=== PATIENT | female | born 1950 | race Caucasian/White ===

== ENCOUNTER 2016-11-14 09:58 | Outpatient (CLI) | payer BC, OTHER ==
--- NOTE | 2016-11-15 22:40 | Mammography Report ---
DIGITAL BILATERAL SCREENING MAMMOGRAM: 11/14/2016 CLINICAL HISTORY: This is a 66-year-old female in for routine screening mammogram. Patient had a cou sin age 66 with breast cancer. Patient has had no prior breast surgeries. COMPARISON: 05/07/2009, 06/21/2011, 06/21/2012, 06/21/2013, 10/20/2014. TECHNIQUE: Craniocaudad and oblique lateral views of each breast were obtained with Hologic full fie ld digital mammography. FINDINGS: Breast parenchyma consists of scattered fibroglandular densities. A 1 cm relatively well-circumscribed mass is noted in the posterior aspect of the left breast along t he midline. This mass appears slightly denser and slightly larger than on preceding mammogram dated 11/05/2015. The mass is 7.7 cm posterior to the nipple. Recommend patient return for left breast ul trasound for further evaluation. No significant clusters of calcification are seen. IMPRESSION: A 1 CM WELL-CIRCUMSCRIBED MASS IS NOTED IN THE POSTERIOR ASPECT OF THE LEFT BREAST ALONG THE MIDLINE. THIS MASS APPEARS SLIGHTLY LARGER AND DENSER THAN ON PRECEDING EXAMS. RECOMMEND PATIE NT RETURN FOR LEFT BREAST ULTRASOUND. BIRADS CATEGORY: 0, INCOMPLETE. NEEDS ADDITIONAL IMAGING EVALUATION. STANDARD QUALIFYING STATEMENTS 1. This examination was reviewed with the aid of Computed-Aided Detection (CAD). 2. A negative or benign imaging report should not delay biopsy if clinically suspicious findings are present. Consider surgical consultation if warranted. More than 5% of cancers are not identified b y imaging. 3. Dense breasts may obscure an underlying neoplasm. JOB #: [id number] EXT JOB #:[id number]
== END 2016-11-14 09:59 | disposition home or self-care (01) ==
LOC: DI 09:58
PROVIDERS: ATTEND Family Medicine
DX: Z12.31 Encounter for screening mammogram for malignant neoplasm of breast (principal); N63 Unspecified lump in breast
CPT/HCPCS: 77067

== ENCOUNTER 2016-11-15 21:07 | Outpatient (CLI) | payer OTHER | END 2016-11-15 21:08 | disposition critical access hospital (66) | LOC: EMS 21:07 | PROVIDERS: ATTEND Surgery | DX: R09.89 Other specified symptoms and signs involving the circulatory and respiratory systems (principal) | CPT/HCPCS: A0425; A0427 ==

== ENCOUNTER 2016-11-15 21:26 | Emergency (ER) | payer OTHER ==
[2016-11-15] MEDS ORDERED: ASPIRIN CHEW 81 MG TABLET PO STA (21:45)
[2016-11-15] MEDS ORDERED: ASPIRIN CHEW 81 MG TABLET ONE (21:47)
[2016-11-15 22:11] LABS: BASOPHILS # (AUTO) 0.1 10^3/uL (0.0-0.1); BASOPHILS % (AUTO) 2.2 %; EOSINOPHILS # (AUTO) 0.2 10^3/uL (0.0-0.7); EOSINOPHILS % (AUTO) 3.5 %; HCT - HEMATOCRIT 42.6 % (37.0-47.0); HGB - HEMOGLOBIN 13.7 g/dL (12.0-16.0); LYMPHOCYTES % (AUTO) 37.4 %; MEAN CORPUSCULAR HEMOGLOBIN 27.7 pg (27.0-31.0); MEAN CORPUSCULAR HGB CONC 32.1 g/dL (32.0-36.0); MEAN CORPUSCULAR VOLUME 86.4 fL (81.0-99.0); MEAN PLATELET VOLUME 9.2 fL (7.9-10.8); MONOCYTES # (AUTO) 0.3 10^3/uL (0.0-1.0); MONOCYTES % (AUTO) 5.3 %; NEUTROPHILS # (AUTO) 2.7 10^3/uL (1.5-6.6); NEUTROPHILS % (AUTO) 51.6 %; NUCLEATED RED BLOOD CELLS AUTO 0.2 /100WBC; RED BLOOD COUNT 4.93 10^6/uL (4.20-5.40); UNCORRECTED WHITE BLOOD COUNT 5.2 x10^3/uL; WHITE BLOOD COUNT 5.2 x10^3/uL (4.8-10.8)
[2016-11-15 22:21] LABS: INR 1.2 (0.8-1.2); PT - PROTHROMBIN TIME 13.6 secs (9.9-12.6)
[2016-11-15 22:22] LABS: BILIRUBIN,URINE NEGATIVE (NEGATIVE); PH,URINE 7.5 PH (5.0-7.5)
[2016-11-15 22:23] LABS: UA w/ MICROSCOPIC CHARGE YES
[2016-11-15 22:24] LABS: ALBUMIN/GLOBULIN RATIO 1.9 (1.0-2.2); BILIRUBIN,TOTAL 0.5 mg/dL (0.2-1.0); CALCIUM 9.6 mg/dL (8.5-10.3); CREATININE 0.7 mg/dL (0.4-1.0); POTASSIUM 3.5 mmol/L (3.5-5.0)
--- NOTE | 2016-11-15 22:28 | XRAY Preliminary Report ---
Exam: XR Chest 1 View IMPRESSION: Normal single view chest. [facility] SITE ID: [id number]
[2016-11-15 22:29] LABS: PARTIAL THROMBOPLASTIN TIME 39.4 secs (24.9-33.3)
--- NOTE | 2016-11-15 22:31 | XRAY Report ---
EXAM: CHEST RADIOGRAPHY EXAM DATE: 11/15/2016 10:00 PM. CLINICAL HISTORY: Chest pain, dizziness. COMPARISON: None. TECHNIQUE: 1 view. FINDINGS: Lungs/Pleura: No focal opacities evident. No pleural effusion. No pneumothorax. Mediastinum: Within exam limitations, cardiomediastinal contour is normal. Other: None. IMPRESSION: Normal single view chest. [facility] Referring Provider Line: [phone] SITE ID: [id number]
[2016-11-15 22:38] LABS: UR CULTURE IF IND NOT INDICATED; WBC,URINE 0-3 /HPF (0-5)
[2016-11-15 23:34] VITALS: BP 122/58
--- NOTE | 2016-11-16 | ED Physician Documentation ---
History of Present Illness - Stated complaint Stated Complaint: PALPATATIONS - Chief complaint Chief Complaint: Cardiac - History obtained from History obtained from: Patient, Family - History of Present Illness Timing: Today - Additonal information Additional information: Patient is a 66 year old female with a history of paroxysmal a fib who is presenting to the emergency department for htn and palpations. Patient states that today she felt like her heart was palpating, so she took her blood pressure. The systol was 150 so patient became worried and called ems. Upon initial evaluation in the emergency department patient denied any chest pain or shortness of breath but stated that she did feel a bit nauseated. Review of Systems Constitutional: reports: Chills. denies: Fever Eyes: denies: Loss of vision, Decreased vision Ears: denies: Loss of hearing, Ear pain Nose: denies: Rhinorrhea / runny nose, Congestion Throat: denies: Dental pain / toothache, Sore throat Cardiac: reports: Palpitations. denies: Chest pain / pressure, Pedal edema, Calf pain Respiratory: denies: Dyspnea, Cough, Wheezing GI: reports: Nausea. 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 - Allergies Allergies/Adverse Reactions: Allergies Allergy/AdvReac Type Severity Reaction Status Date / Time patient states "a few rare Allergy Unknown Uncoded 11/15/16 21:49 ones" - Social History Does the pt smoke?: No Smoking Status: Never smoker Does the pt drink ETOH?: No Does the pt have substance abuse?: No - Immunizations Immunizations are current?: Yes - POLST Patient has POLST: Yes PD ED PE NORMAL - Vitals Vital signs reviewed: Yes - General General: Alert and oriented X 3, Well developed/nourished - HEENT HEENT: Atraumatic, PERRL, Pharynx benign - Neck Neck: Supple, no meningeal sign, No JVD - Cardiac Cardiac: RRR, No murmur - Respiratory Respiratory: No respiratory distress, Clear bilaterally - Abdomen Abdomen: Soft, Non tender, Non distended - Derm Derm: Normal color, Warm and dry, No rash - Extremities Extremities: No deformity, No tenderness to palpate, No calf tenderness / cord - Neuro Neuro: No motor deficit, No sensory deficit, Normal speech PD ED PE EXPANDED - General General: Alert, Anxious Results - Vitals Vitals: Vital Signs - 24 hr 11/15/16 11/15/16 11/15/16 21:28 22:01 23:33 Heart Rate 69 70 59 L Respiratory 17 20 18 Rate Blood Pressure 156/77 H 144/73 H 122/58 L O2 Saturation 97 95 94 Oxygen O2 Source Room air - EKG (time done) 2136 Rate: Rate (enter#) (67) Rhythm: NSR [place]: LAD Intervals: Normal HI Ischemia: ST depression (V4, V5), T wave inversion (AVL, V4-V6) Compare to prior EKG: Changed from prior EKG - Labs Labs: Laboratory Tests 11/15/16 11/15/16 11/15/16 22:04 22:04 22:04 WBC 5.2 RBC 4.93 Hgb 13.7 Hct 42.6 MCV 86.4 MCH 27.7 MCHC 32.1 RDW 16.0 H Plt Count 282 MPV 9.2 Neut # 2.7 Lymph # 2.0 [place] # 0.3 Eos # 0.2 Baso # 0.1 Absolute Nucleated RBC 0.01 Nucleated RBCs 0.2 PT 13.6 H INR 1.2 APTT 39.4 H Sodium 142 Potassium 3.5 Chloride 108 Carbon Dioxide 26 Anion Gap 8.0 BUN 16 Creatinine 0.7 Estimated GFR (MDRD) 84 L Glucose 116 H Calcium 9.6 Total Bilirubin 0.5 AST 21 ALT 21 Alkaline Phosphatase 22 L Troponin I B-Natriuretic Peptide Total Protein 7.0 Albumin 4.6 Globulin 2.4 Albumin/Globulin Ratio 1.9 Lipase 44 TSH Urine Color Urine Clarity Urine pH Ur Specific [place] Urine Protein Urine Glucose (UA) Urine Ketones Urine Occult Blood Urine Nitrite Urine Bilirubin Urine Urobilinogen Ur Leukocyte Esterase Urine RBC Urine WBC Ur Squamous Epith Cells Urine Bacteria Ur Microscopic Review Urine Culture Comments 11/15/16 11/15/16 11/15/16 22:04 22:04 22:04 WBC RBC Hgb Hct MCV MCH MCHC RDW Plt Count MPV Neut # Lymph # [place] # Eos # Baso # Absolute Nucleated RBC Nucleated RBCs PT INR APTT Sodium Potassium Chloride Carbon Dioxide Anion Gap BUN Creatinine Estimated GFR (MDRD) Glucose Calcium Total Bilirubin AST ALT Alkaline Phosphatase Troponin I < 0.04 B-Natriuretic Peptide 159 H Total Protein Albumin Globulin Albumin/Globulin Ratio Lipase TSH 3.79 Urine Color Urine Clarity Urine pH Ur Specific [place] Urine Protein Urine Glucose (UA) Urine Ketones Urine Occult Blood Urine Nitrite Urine Bilirubin Urine Urobilinogen Ur Leukocyte Esterase Urine RBC Urine WBC Ur Squamous Epith Cells Urine Bacteria Ur Microscopic Review Urine Culture Comments 11/15/16 11/15/16 22:15 23:20 WBC RBC Hgb Hct MCV MCH MCHC RDW Plt Count MPV Neut # Lymph # [place] # Eos # Baso # Absolute Nucleated RBC Nucleated RBCs PT INR APTT Sodium Potassium Chloride Carbon Dioxide Anion Gap BUN Creatinine Estimated GFR (MDRD) Glucose Calcium Total Bilirubin AST ALT Alkaline Phosphatase Troponin I < 0.04 B-Natriuretic Peptide Total Protein Albumin Globulin Albumin/Globulin Ratio Lipase TSH Urine Color YELLOW Urine Clarity CLEAR Urine pH 7.5 Ur Specific [place] 1.010 Urine Protein NEGATIVE Urine Glucose (UA) NEGATIVE Urine Ketones NEGATIVE Urine Occult Blood SMALL H Urine Nitrite NEGATIVE Urine Bilirubin NEGATIVE Urine Urobilinogen 0.2 (NORMAL) Ur Leukocyte Esterase NEGATIVE Urine RBC 0-5 Urine WBC 0-3 Ur Squamous Epith Cells FEW Squamous Urine Bacteria None Seen Ur Microscopic Review INDICATED Urine Culture Comments NOT INDICATED - Rads (name of study) chest x-ray Radiology: Final report received (no acute abnormality) PD MEDICAL DECISION MAKING - ED course Complexity details: reviewed old records, reviewed results, re-evaluated patient , considered differential, d/w patient, d/w family ED course: Patient was seen and examined at bedside. ekg was performed and showed t wave inversions and st segment depressions. there was no previous ekg available so patient was treated with aspirin. [facility] and [facility] in [place] was contacted and a previous ekg was faxed over. the previous ekg showed the same abnormalities. Patient's preliminary diagnostics, including troponin were negative. patient was observed in the emergency department for over two hours. Patient's second set of troponins were negative. Patient remained chest pain free while in the emergency department. Copies of the ekgs were made for the family to take with them while traveling. patient required no further work up at this time and patient was stable for discharge with outpatient follow up. Departure - Departure Disposition: 01 Home, Self Care Clinical Impression: Intermittent palpitations Condition: Good Instructions: ED Palpitations Follow-Up: Yobany Nash MD [Primary Care Provider] - Tomorrow Comments: Your diagnostics today were within normal limits. your ekg was unchanged when compared to previous. Your blood work was within normal limits. You should follow up with your pmd, if your have recurrent spells of the feeling of palpitations. You may need to wear a holter monitor. You have an abnormal ekg , so when you are traveling you should keep it with you so that you can show the doctor if you have to see one. You may return to the emergency department at any time for new, worsening or uncontrollable symptoms.
== END 2016-11-16 00:16 | disposition home or self-care (01) ==
LOC: EDUNIT# → ED 21:26
DX: R00.2 Palpitations (principal); I48.0 Paroxysmal atrial fibrillation; I10 Essential (primary) hypertension; E11.9 Type 2 diabetes mellitus without complications
CPT/HCPCS: 36415; 71010; 80053; 81001; 83690; 83880; 84443; 84484; 85025; 85610; 85730; 93005; 93010; 99284; 99285; A9270; 81003; 87086

== ENCOUNTER 2016-12-05 09:26 | Outpatient (CLI) | payer OTHER ==
--- NOTE | 2016-12-05 11:28 | Ultrasound Report ---
LEFT BREAST ULTRASOUND: 12/05/2016 CLINICAL INDICATION: Possible nodule on mammogram. TECHNIQUE: Real-time scanning was performed with account services representative static images obtained. FINDINGS: Ultrasound of the inferior left breast was performed. No discrete solid or cystic lesion is identified. Unremarkable parenchymal lobules are seen. No sonog raphically suspicious findings are appreciated. IMPRESSION: NEGATIVE EXAMINATION. RECOMMENDATION: ROUTINE ANNUAL SCREENING UNLESS OTHERWISE CLINICALLY INDICATED. BIRADS CATEGORY 1-NEGATIVE. JOB #: [id number] EXT JOB #:[id number]
== END 2016-12-05 09:27 | disposition home or self-care (01) ==
LOC: DI 09:26
PROVIDERS: ATTEND Family Medicine
DX: N63 Unspecified lump in breast (principal)
CPT/HCPCS: 76642

== ENCOUNTER 2016-12-28 15:27 | Outpatient (CLI) | payer OTHER | END 2016-12-28 15:28 | disposition critical access hospital (66) | DX: R07.9 Chest pain, unspecified (principal) | CPT/HCPCS: A0425; A0427 ==

== ENCOUNTER 2016-12-28 15:45 | Emergency (ER) | payer OTHER ==
--- NOTE | 2016-12-28 16:00 | ED Physician Documentation ---
PD HPI CHEST PAIN - Stated complaint Stated Complaint: CP - Chief complaint Chief Complaint: Cardiac - History obtained from History obtained from: Patient, Family, EMS - History of Present Illness Timing - onset: How many hours ago (1) Timing - onset during: Rest Timing - duration: Hours (1) Timing - details: Abrupt onset Pain level max: 8 Pain level now: 8 Quality: Pressure, Tightness, Pain Location: Substernal Radiation: Other (non-radiating) Improved by: Other (diltiazem with EMS) Worsened by: Other (nothing) Associated symptoms: Shortness of air, Diaphoresis, Feeling faint / dizzy, General Weakness, Palpitations Similar symptoms before: Diagnosis (paroxysmal Afib) Recently seen: Emergency Dept (seen here end of october for same.) - Additional information Additional information: found to be in Afib at a rate of 220 with EMS. given 20mg diltiazem IV and HR slowed to 120-130bpm. Has not been taking her amiodarone. Has decreased her metoprolol to 12.5mg PO BID from 25mg BID. Review of Systems Ten Systems: 10 systems reviewed and negative Constitutional: denies: Fever, Chills Ears: denies: Ear pain Nose: denies: Rhinorrhea / runny nose, Congestion Throat: denies: Sore throat Respiratory: denies: Cough, Hemoptysis, Wheezing GI: denies: Abdominal Pain, Nausea, Vomiting, Diarrhea Skin: denies: Rash Musculoskeletal: denies: Neck pain, Back pain Neurologic: denies: Focal weakness, Numbness, Headache PD PAST MEDICAL HISTORY - Past Medical History Past Medical History: Yes Cardiovascular: Hypertension, Atrial fibrillation Endocrine/Autoimmune: Type 2 diabetes GI: GERD - Past Surgical History Past Surgical History: Yes 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 - Present Medications Home Medications: Ambulatory Orders Medication Instructions Recorded Confirmed Alprazolam 0.5 mg PO TID PRN MDD 1.5mg 12/28/16 12/28/16 Amiodarone [Pacerone] 400 mg PO DAILY 12/28/16 12/28/16 Apixaban [Eliquis] 1 tab PO BID 12/28/16 12/28/16 Calcium Carbonate/Vitamin D3 1 tab PO DAILY 12/28/16 12/28/16 [Calcium 600-Vit D3 400 Tablet] Cholecalciferol (Vitamin D3) 1 tab PO DAILY 12/28/16 12/28/16 [Vitamin D3] Cranberry Fruit [Cranberry] 1 tab PO DAILY 12/28/16 12/28/16 Estradiol 1 tab PO DAILY 12/28/16 12/28/16 Fenofibrate Nanocrystallized 1 tab PO DAILY 12/28/16 12/28/16 [Fenofibrate] Fenofibric Acid (Choline) 1 tab PO DAILY 12/28/16 12/28/16 [Fenofibric Acid] Levothyroxine Sodium 0.5 tab PO DAILY 12/28/16 12/28/16 Metoprolol Tartrate [Lopressor] 25 mg PO BID 12/28/16 12/28/16 [place]-3S/Dha/Epa/Fish Oil/D3 1 each PO DAILY 12/28/16 12/28/16 [[place]-3 + D Softgel] Triamcinolone 0.5% Cream [Kenalog 0.025 gm TOP DAILY 12/28/16 12/28/16 0.5% Cream] - Allergies Allergies/Adverse Reactions: Allergies Allergy/AdvReac Type Severity Reaction Status Date / Time patient states "a few rare Allergy Unknown Uncoded 11/15/16 21:49 ones" - Social History Does the pt smoke?: No Smoking Status: Never smoker Does the pt drink ETOH?: No Does the pt have substance abuse?: No - Immunizations Immunizations are current?: Yes - POLST Patient has POLST: Yes PD ED PE NORMAL - Vitals Vital signs reviewed: Yes - General General: Alert and oriented X 3, No acute distress - HEENT HEENT: Moist mucous membranes, Pharynx benign - Neck Neck: Supple, no meningeal sign - Cardiac Cardiac: Other (irregular, tachycardic) - Respiratory Respiratory: No respiratory distress, Clear bilaterally - Abdomen Abdomen: Soft, Non tender, Non distended - Derm Derm: Warm and dry - Extremities Extremities: No edema, No calf tenderness / cord - Neuro Neuro: Alert and oriented X 3 - Psych Psych: Normal mood, Normal affect Results - Vitals Vitals: Vital Signs - 24 hr 12/28/16 12/28/16 12/28/16 15:46 16:39 16:51 Temperature Heart Rate 144 H 186 H 151 H Respiratory 20 22 20 Rate Blood Pressure 143/103 H 134/101 H 146/106 H O2 Saturation 97 98 99 12/28/16 12/28/16 12/28/16 16:52 17:00 17:23 Temperature 37.0 C Heart Rate 78 73 Respiratory 16 16 Rate Blood Pressure 125/72 125/60 O2 Saturation 98 98 12/28/16 12/28/16 17:30 17:55 Temperature Heart Rate 76 78 Respiratory 16 16 Rate Blood Pressure 118/66 122/66 O2 Saturation 99 98 Oxygen O2 Source Room air - EKG (time done) 1554 Rate: Rate (enter#) (137) Rhythm: Atrial fibrillation (with RVR) [place]: Normal Ischemia: ST elevation c/w repol Computer interpretation: Agree with computer 1710 Rate: Rate (enter#) (76) Rhythm: NSR [place]: Normal QRS: LVH (with repol abnormality.) Compare to prior EKG: Unchanged from prior EKG Computer interpretation: Agree with computer - Labs Labs: Laboratory Tests 12/28/16 12/28/16 16:28 16:28 WBC 5.8 RBC 5.10 Hgb 14.5 Hct 44.0 MCV 86.3 MCH 28.4 MCHC 33.0 RDW 15.4 H Plt Count 290 MPV 8.9 Neut # 3.7 Lymph # 1.6 [place] # 0.3 Eos # 0.2 Baso # 0.1 Absolute Nucleated RBC 0.00 Nucleated RBCs 0.0 Sodium 145 Potassium 3.2 L Chloride 114 H Carbon Dioxide 22 Anion Gap 9.0 BUN 15 Creatinine 0.7 Estimated GFR (MDRD) 84 L Glucose 158 H Calcium 10.9 H Phosphorus 2.2 L Magnesium 1.8 Total Bilirubin 1.0 AST 88 H ALT 77 H Alkaline Phosphatase 26 L Total Protein 7.5 Albumin 4.7 Globulin 2.8 Albumin/Globulin Ratio 1.7 Lipase 52 H - Rads (name of study) cxr Radiology: Prelim report reviewed, EMP read contemporaneously, See rad report ( Borderline cardiomegaly without acute pulmonary consolidation. ) PD MEDICAL DECISION MAKING - ED course Complexity details: reviewed results, re-evaluated patient, considered differential, d/w patient, d/w family, d/w tax consultant ([id number] - Dr. Hodge cardiology cotton machine operator for Dr. Ortez. ) ED course: Patient is a 66-year-old female presents to the emergency department with atrial fibrillation with rapid ventricular response. She is on Eliquis at home. She has not been taking her amiodarone. She is only taking 12-1/2 mg of metoprolol twice a day at home. Initial heart rate was over 200 with EMS, given 20 of diltiazem by EMS. She was then placed on procainamide here and converted to normal sinus rhythm. Symptoms resolved. No acute laboratory findings. Discussed the case with cardiology on-call who recommends increasing the metoprolol to 25 mg p.o. twice daily as well as taking the amiodarone 200 mg p.o. daily. Cardiology office will call her in the morning for an appointment. Patient and family counseled regarding signs and symptoms for which I believe and urgent re-evaluation would be necessary. Patient with good understanding of and agreement to plan and is comfortable going home at this time This document was made in part using voice recognition software. While efforts are made to proofread this document, sound alike and grammatical errors may occur. Patient also had a recent negative coronary angiogram. Departure - Departure Disposition: 01 Home, Self Care Clinical Impression: Atrial fibrillation Qualifiers: Atrial fibrillation type: paroxysmal Qualified Code(s): I48.0 - Paroxysmal atrial fibrillation Condition: Good Instructions: ED Afib Follow-Up: Yobany Nash MD [Primary Care Provider] - Within 1 week Comments: Take the amiodarone daily (1 tab 200mg) until you see Dr. Ortez. You should also increase your metoprolol to 25mg by mouth twice daily. Return if you worsen. The cardiology office should call you in the morning. I spoke with Dr. Naveen valdez. Discharge Date/Time: 12/28/16 17:56
[2016-12-28] MEDS ORDERED: PROCAINAMIDE 1,000 MG in SODIUM CHLORIDE 0.9% 240 ML IV STA (16:03)
[2016-12-28] MEDS ORDERED: SODIUM CHLORIDE 0.9% 1,000 ML IV ONE (16:09)
[2016-12-28 16:38] LABS: BASOPHILS # (AUTO) 0.1 10^3/uL (0.0-0.1); EOSINOPHILS # (AUTO) 0.2 10^3/uL (0.0-0.7); EOSINOPHILS % (AUTO) 2.7 %; HGB - HEMOGLOBIN 14.5 g/dL (12.0-16.0); LYMPHOCYTES # (AUTO) 1.6 10^3/uL (1.5-3.5); LYMPHOCYTES % (AUTO) 27.6 %; MEAN CORPUSCULAR HEMOGLOBIN 28.4 pg (27.0-31.0); MEAN CORPUSCULAR VOLUME 86.3 fL (81.0-99.0); MEAN PLATELET VOLUME 8.9 fL (7.9-10.8); MONOCYTES # (AUTO) 0.3 10^3/uL (0.0-1.0); MONOCYTES % (AUTO) 4.4 %; NEUTROPHILS # (AUTO) 3.7 10^3/uL (1.5-6.6); NEUTROPHILS % (AUTO) 64.3 %; RED CELL DISTRIBUTION WIDTH 15.4 % (12.0-15.0); UNCORRECTED WHITE BLOOD COUNT 5.8 x10^3/uL; WHITE BLOOD COUNT 5.8 x10^3/uL (4.8-10.8)
[2016-12-28 16:46] LABS: ALBUMIN/GLOBULIN RATIO 1.7 (1.0-2.2); CALCIUM 10.9 mg/dL (8.5-10.3); CREATININE 0.7 mg/dL (0.4-1.0); MAGNESIUM 1.8 mg/dL (1.7-2.8); PHOSPHORUS 2.2 mg/dL (2.5-4.6); POTASSIUM 3.2 mmol/L (3.5-5.0); TOTAL PROTEIN 7.5 g/dL (6.7-8.2)
--- NOTE | 2016-12-28 17:11 | XRAY Preliminary Report ---
Exam: XR Chest 1 View IMPRESSION: Borderline cardiomegaly without acute pulmonary consolidation. [facility] SITE ID: [id number]
--- NOTE | 2016-12-28 17:14 | XRAY Report ---
EXAM: CHEST RADIOGRAPHY EXAM DATE: 12/28/2016 04:43 PM. CLINICAL HISTORY: Palpitations. COMPARISON: Chest x-ray 11/15/2016. TECHNIQUE: 1 view. FINDINGS: Lungs/Pleura: No focal opacities evident. No pleural effusion. No pneumothorax. Mediastinum: Borderline cardiomegaly. Other: None. IMPRESSION: Borderline cardiomegaly without acute pulmonary consolidation. [facility] Referring Provider Line: [phone] SITE ID: [id number]
[2016-12-28 17:56] VITALS: BP 122/66
== END 2016-12-28 17:56 | disposition home or self-care (01) ==
LOC: EDUNIT# → ED 15:45
DX: I48.0 Paroxysmal atrial fibrillation (principal); R94.31 Abnormal electrocardiogram [ECG] [EKG]; I10 Essential (primary) hypertension; E11.9 Type 2 diabetes mellitus without complications; K21.9 Gastro-esophageal reflux disease without esophagitis
CPT/HCPCS: 36415; 71010; 80053; 83690; 83735; 84100; 85025; 93005; 96374; 99284; 99285

== ENCOUNTER 2018-02-03 14:43 | Outpatient (CLI) | payer MEDICARE, OTHER | END 2018-02-03 14:44 | disposition critical access hospital (66) | LOC: EMS 14:43 | PROVIDERS: ATTEND Surgery | DX: R00.2 Palpitations (principal); R11.0 Nausea; R07.89 Other chest pain | CPT/HCPCS: A0425; A0427 ==

== ENCOUNTER 2018-02-03 15:01 | Emergency (ER) | payer MEDICARE ==
[2018-02-03] MEDS ORDERED: diltiaZEM INJ 5 MG/ML VIAL IVP STA ×2 (15:26→16:07)
--- NOTE | 2018-02-03 15:29 | ED Physician Documentation ---
PD HPI CHEST PAIN - Stated complaint Stated Complaint: AFIB/ PALPITION - Chief complaint Chief Complaint: Cardiac - History obtained from History obtained from: Patient, Family, EMS - History of Present Illness Timing - onset: Today (Much of the history is from the . The patient has word finding difficulties which the says have been progressive over the last couple of years and they have an upcoming neurology appointment for the same. Because of that history is limited from the patient because she is fairly scattered. She does seem to have good memory, she just has trouble verbalizing events. Anyways she has a history of A. fib. She is on Multitak and Eliquis. She started to have pounding in her chest today and chest pain. She is unable to verbalize whether this is similar or dissimilar to prior episodes of A. fib. She denies shortness of breath or pedal edema.) Review of Systems Unable to obtain: Confused PD PAST MEDICAL HISTORY - Past Medical History Past Medical History: Yes Cardiovascular: Hypertension, Atrial fibrillation Neuro: Other Endocrine/Autoimmune: Type 2 diabetes GI: GERD : None - Past Surgical History Past Surgical History: Yes General: Cholecystectomy /INFANT CAREGIVER: Hysterectomy Cardiovascular: Other - Present Medications Home Medications: Ambulatory Orders Medication Instructions Recorded Confirmed ALPRAZolam [Alprazolam] 0.5 mg PO TID PRN MDD 1.5mg 12/28/16 02/03/18 Apixaban [Eliquis] 1 tab PO BID 12/28/16 02/03/18 Calcium Carbonate/Vitamin D3 1 tab PO DAILY 12/28/16 02/03/18 [Calcium 600-Vit D3 400 Tablet] Cholecalciferol (Vitamin D3) 1 tab PO DAILY 12/28/16 02/03/18 [Vitamin D3] Cranberry Fruit [Cranberry] 1 tab PO DAILY 12/28/16 02/03/18 Estradiol 1 tab PO DAILY 12/28/16 02/03/18 Fenofibric Acid (Choline) 1 tab PO DAILY 12/28/16 02/03/18 [Fenofibric Acid] Levothyroxine Sodium 0.5 tab PO DAILY 12/28/16 02/03/18 Metoprolol Tartrate [Lopressor] 25 mg PO BID 12/28/16 02/03/18 [place]-3S/Dha/Epa/Fish Oil/D3 1 each PO DAILY 12/28/16 02/03/18 [[place]-3 + D Softgel] Triamcinolone 0.5% Cream [Kenalog 0.025 gm TOP DAILY 12/28/16 02/03/18 0.5% Cream] Dexlansoprazole [Dexilant] 60 mg PO 02/03/18 Dronedarone HCl [Multaq] 400 mg PO 02/03/18 Esomeprazole Magnesium [Nexium 20 mg PO 02/03/18 24Hr] Fenofibric Acid (Choline) 135 mg PO 02/03/18 02/03/18 [Trilipix] Hydrocortisone Acetate 25 gm MC 02/03/18 - Allergies Allergies/Adverse Reactions: Allergies Allergy/AdvReac Type Severity Reaction Status Date / Time patient states "a few rare Allergy Unknown Uncoded 02/03/18 15:15 ones" - Social History Does the pt smoke?: No Smoking Status: Never smoker Does the pt drink ETOH?: No Does the pt have substance abuse?: No - Immunizations Immunizations are current?: Yes - POLST Patient has POLST: Yes PD ED PE NORMAL - Vitals Vital signs reviewed: Yes - General General: Other (She is alert and oriented to person and place but not time, she has significant difficulties verbalizing what she is trying to talk about.) - HEENT HEENT: PERRL, EOMI - Neck Neck: Supple, no meningeal sign, No bony TTP - Cardiac Cardiac: Other (Irregularly irregular without murmur) - Respiratory Respiratory: No respiratory distress, Clear bilaterally - Abdomen Abdomen: Soft, Non tender - Derm Derm: Normal color, Warm and dry - Extremities Extremities: No edema, No calf tenderness / cord - Neuro Neuro: tab builder 2-12 intact Eye Opening: Spontaneous Motor: Obeys Commands Verbal: Confused GCS Score: 14 - Psych Psych: Normal mood, Normal affect Results - Vitals Vitals: Vital Signs - 24 hr 02/03/18 02/03/18 02/03/18 15:07 15:50 15:54 Temperature 37 C Heart Rate 133 H 136 H 105 H Respiratory 20 20 18 Rate Blood Pressure 156/107 H 128/106 H 118/75 O2 Saturation 98 95 93 02/03/18 02/03/18 02/03/18 15:57 16:01 16:06 Temperature Heart Rate 102 H 111 H 128 H Respiratory 20 18 20 Rate Blood Pressure 111/80 120/73 122/83 H O2 Saturation 90 L 97 98 02/03/18 02/03/18 02/03/18 16:19 16:23 16:27 Temperature Heart Rate 106 H 92 92 Respiratory 19 20 18 Rate Blood Pressure 112/96 H 103/59 L 111/64 O2 Saturation 94 96 94 02/03/18 02/03/18 02/03/18 16:31 16:35 17:01 Temperature Heart Rate 102 H 61 58 L Respiratory 18 18 16 Rate Blood Pressure 102/76 116/66 112/68 O2 Saturation 94 96 95 02/03/18 17:12 Temperature Heart Rate 57 L Respiratory 16 Rate Blood Pressure 110/62 O2 Saturation 94 Oxygen O2 Source Room air - EKG (time done) 1509 Rate: Rate (enter#) (122) Rhythm: Atrial fibrillation QRS: LVH Ischemia: ST depression (Lateral ST depression) Computer interpretation: Agree with computer 1658 Rate: Rate (enter#) (58) Rhythm: NSR, LAE [place]: Normal QRS: LVH Ischemia: Non specific changes Computer interpretation: Agree with computer - Labs Labs: Laboratory Tests 02/03/18 02/03/18 02/03/18 15:15 15:15 15:15 WBC 4.1 L RBC 5.13 Hgb 14.9 Hct 44.6 MCV 87.0 MCH 29.0 MCHC 33.3 RDW 15.1 H Plt Count 291 MPV 8.6 Neut # (Auto) 2.1 Lymph # (Auto) 1.6 [place] # (Auto) 0.2 Eos # (Auto) 0.1 Baso # (Auto) 0.0 Absolute Nucleated RBC 0.00 Nucleated RBC % 0.0 Manual Slide Review Indicated WBC Morphology NORMAL APPEARANCE Platelet Estimate NORMAL (130-450,000) Platelet Morphology NORMAL APPEARANCE RBC Morph Micro Appear 1+ ANISOCYTOSIS Sodium 143 Potassium 3.2 L Chloride 112 H Carbon Dioxide 21 Anion Gap 10.0 BUN 15 Creatinine 0.7 Estimated GFR (MDRD) 84 L Glucose 162 H Calcium 10.0 Total Bilirubin 0.5 AST 27 ALT 23 Alkaline Phosphatase 21 L Troponin I < 0.04 Total Protein 7.5 Albumin 4.6 Globulin 2.9 Albumin/Globulin Ratio 1.6 Lipase 68 H TSH Urine Color Urine Clarity Urine pH Ur Specific [place] Urine Protein Urine Glucose (UA) Urine Ketones Urine Occult Blood Urine Nitrite Urine Bilirubin Urine Urobilinogen Ur Leukocyte Esterase Ur Microscopic Review 02/03/18 02/03/18 15:25 16:15 WBC RBC Hgb Hct MCV MCH MCHC RDW Plt Count MPV Neut # (Auto) Lymph # (Auto) [place] # (Auto) Eos # (Auto) Baso # (Auto) Absolute Nucleated RBC Nucleated RBC % Manual Slide Review WBC Morphology Platelet Estimate Platelet Morphology RBC Morph Micro Appear Sodium Potassium Chloride Carbon Dioxide Anion Gap BUN Creatinine Estimated GFR (MDRD) Glucose Calcium Total Bilirubin AST ALT Alkaline Phosphatase Troponin I Total Protein Albumin Globulin Albumin/Globulin Ratio Lipase TSH 1.53 Urine Color YELLOW Urine Clarity CLEAR Urine pH 6.5 Ur Specific [place] <=1.005 Urine Protein NEGATIVE Urine Glucose (UA) NEGATIVE Urine Ketones NEGATIVE Urine Occult Blood TRACE-INTA Urine Nitrite NEGATIVE Urine Bilirubin NEGATIVE Urine Urobilinogen 0.2 (NORMAL) Ur Leukocyte Esterase NEGATIVE Ur Microscopic Review NOT INDICATED - Rads (name of study) 2v chest Radiology: EMP read contemporaneously (normal) PD MEDICAL DECISION MAKING - ED course ED course: 67-year-old woman with paroxysmal atrial fibrillation on full anticoagulation presents with recurrent atrial fibrillation that is symptomatic. She was given initially 10 mg of diltiazem IV push without much change, and the dose was repeated at 20 mg with conversion to normal sinus rhythm. - Sepsis Event Vital Signs: Vital Signs - 24 hr 02/03/18 02/03/18 02/03/18 15:07 15:50 15:54 Temperature 37 C Heart Rate 133 H 136 H 105 H Respiratory 20 20 18 Rate Blood Pressure 156/107 H 128/106 H 118/75 O2 Saturation 98 95 93 02/03/18 02/03/18 02/03/18 15:57 16:01 16:06 Temperature Heart Rate 102 H 111 H 128 H Respiratory 20 18 20 Rate Blood Pressure 111/80 120/73 122/83 H O2 Saturation 90 L 97 98 02/03/18 02/03/18 02/03/18 16:19 16:23 16:27 Temperature Heart Rate 106 H 92 92 Respiratory 19 20 18 Rate Blood Pressure 112/96 H 103/59 L 111/64 O2 Saturation 94 96 94 02/03/18 02/03/18 02/03/18 16:31 16:35 17:01 Temperature Heart Rate 102 H 61 58 L Respiratory 18 18 16 Rate Blood Pressure 102/76 116/66 112/68 O2 Saturation 94 96 95 02/03/18 17:12 Temperature Heart Rate 57 L Respiratory 16 Rate Blood Pressure 110/62 O2 Saturation 94 Oxygen O2 Source Room air Departure - Departure Disposition: 01 Home, Self Care Clinical Impression: Atrial fibrillation Qualifiers: Atrial fibrillation type: paroxysmal Qualified Code(s): I48.0 - Paroxysmal atrial fibrillation Condition: Good Record reviewed to determine appropriate education?: Yes Instructions: Atrial Fibrillation Dc Comments: Continue current medications and follow-up with your data processing consultant in [place]. Discharge Date/Time: 02/03/18 17:19
[2018-02-03 15:34] LABS: BASOPHILS % (AUTO) 1.2 %; EOSINOPHILS # (AUTO) 0.1 10^3/uL (0.0-0.7); EOSINOPHILS % (AUTO) 2.6 %; HGB - HEMOGLOBIN 14.9 g/dL (12.0-16.0); LYMPHOCYTES # (AUTO) 1.6 10^3/uL (1.5-3.5); LYMPHOCYTES % (AUTO) 39.6 %; MEAN CORPUSCULAR HGB CONC 33.3 g/dL (32.0-36.0); MEAN PLATELET VOLUME 8.6 fL (7.9-10.8); MONOCYTES # (AUTO) 0.2 10^3/uL (0.0-1.0); MONOCYTES % (AUTO) 5.3 %; NEUTROPHILS # (AUTO) 2.1 10^3/uL (1.5-6.6); NEUTROPHILS % (AUTO) 51.3 %; PLT - PLATELET COUNT 291 10^3/uL (130-450); RED BLOOD COUNT 5.13 10^6/uL (4.20-5.40); RED CELL DISTRIBUTION WIDTH 15.1 % (12.0-15.0); WHITE BLOOD COUNT 4.1 x10^3/uL (4.8-10.8)
[2018-02-03 15:43] LABS: ALBUMIN 4.6 g/dL (3.2-5.5); ALBUMIN/GLOBULIN RATIO 1.6 (1.0-2.2); BILIRUBIN,TOTAL 0.5 mg/dL (0.2-1.0); CREATININE 0.7 mg/dL (0.4-1.0); TOTAL PROTEIN 7.5 g/dL (6.7-8.2)
[2018-02-03 15:51] LABS: PLATELET ESTIMATE, MANUAL NORMAL (130-450,000) (NORMAL); PLATELET MORPHOLOGY NORMAL APPEARANCE (NORMAL); RBC MORPHOLOGY (MULTIPLE) 1+ ANISOCYTOSIS (NORMAL)
--- NOTE | 2018-02-03 16:02 | XRAY Report ---
Procedure Date: 02/03/2018 Accession Number: [id number] / [id number] Procedure: XR - Chest 2 View X-Ray CPT Code: 39533 FULL RESULT: EXAM: CHEST RADIOGRAPHY EXAM DATE: 02/03/2018 03:24 PM. CLINICAL HISTORY: Heart palpitations. COMPARISON: CHEST 1 VIEW 12/28/2016. TECHNIQUE: 2 views. FINDINGS: Lungs/Pleura: No focal opacities evident. No pleural effusion. No pneumothorax. Normal volumes. Mediastinum: Heart and mediastinal contours are unremarkable. Other: None. IMPRESSION: Normal 2-view chest radiography. RADIA
[2018-02-03] MEDS ORDERED: POTASSIUM BICARB 25 MEQ TABLET PO STA (16:03)
[2018-02-03 16:31] LABS: BILIRUBIN,URINE NEGATIVE (NEGATIVE); CLARITY,URINE CLEAR (CLEAR); GLUCOSE, URINE (UA) NEGATIVE (NEGATIVE); KETONES,URINE (UA) NEGATIVE (NEGATIVE); LEUKOCYTE ESTERASE, URINE NEGATIVE (NEGATIVE); NITRITE,URINE NEGATIVE (NEGATIVE); OCCULT BLOOD,URINE TRACE-INTA (NEGATIVE); PH,URINE 6.5 PH (5.0-7.5); PROTEIN,URINE NEGATIVE (NEGATIVE); UROBILINOGEN,URINE 0.2 (NORMAL) E.U./dL (NORMAL)
[2018-02-03 17:12] VITALS: BP 110/62
== END 2018-02-03 17:19 | disposition home or self-care (01) ==
LOC: EDUNIT# → ED 15:01
DX: I48.0 Paroxysmal atrial fibrillation (principal); I10 Essential (primary) hypertension; E11.9 Type 2 diabetes mellitus without complications; I51.7 Cardiomegaly
CPT/HCPCS: 36415; 71046; 80053; 81003; 83690; 84443; 84484; 85025; 93005; 96374; 96376; 99284; 99285; A9270; 81001

== ENCOUNTER 2018-02-27 06:00 | Outpatient (CLI) | payer MEDICARE, OTHER | END 2018-02-27 06:01 | disposition critical access hospital (66) | LOC: EMS 06:00 | PROVIDERS: ATTEND Surgery | DX: R07.89 Other chest pain (principal); R00.0 Tachycardia, unspecified ==

== ENCOUNTER 2018-02-27 06:19 | Emergency (ER) | payer MEDICARE, OTHER ==
--- NOTE | 2018-02-27 07:44 | ED Physician Documentation ---
PD HPI CHEST PAIN - Stated complaint Stated Complaint: AFIB - Chief complaint Chief Complaint: Cardiac - History obtained from History obtained from: Patient - History of Present Illness Timing - onset: Today (about 1 1/2 hours ago) Timing - onset during: Rest Timing - duration: Hours (1.5) Timing - details: Abrupt onset, Still present (felt fast heart rate and this improved enroute as medics gave some diltiazem.) Quality: Tightness, Aching. No: Pressure Location: Substernal Radiation: No: Jaw, Neck, Back Improved by: No: Rest Worsened by: Exertion. No: Inspiration, Eating Associated symptoms: Palpitations. No: Shortness of air, Diaphoresis, Nausea, Vomiting, Feeling faint / dizzy, General Weakness Similar symptoms before: Diagnosis (episodic atrial fib) Recently seen: Not recently seen Review of Systems Unable to obtain: Dementia, Other (info from family) Constitutional: denies: Fever, Chills, Myalgias Nose: denies: Rhinorrhea / runny nose, Congestion Throat: denies: Sore throat Cardiac: reports: Chest pain / pressure, Palpitations. denies: Pedal edema, Calf pain Respiratory: reports: Dyspnea. denies: Cough GI: denies: Abdominal Pain, Nausea : denies: Dysuria, Frequency Skin: denies: Rash, Lesions Musculoskeletal: denies: Neck pain, Back pain Neurologic: reports: Generalized weakness, Near syncope. denies: Focal weakness , Numbness Endocrine: reports: Weight loss (some over the past few months) Immunocompromised: denies: Immunocompromised PD PAST MEDICAL HISTORY - Past Medical History Past Medical History: Yes Cardiovascular: Hypertension, Atrial fibrillation Respiratory: None Neuro: Dementia, Other Endocrine/Autoimmune: Type 2 diabetes GI: GERD RADIO TELEVISION TECHNICAL DIRECTOR: None : None HEENT: None - Past Surgical History Past Surgical History: Yes General: Cholecystectomy /RADIO TELEVISION TECHNICAL DIRECTOR: Hysterectomy Cardiovascular: Other - Present Medications Home Medications: Ambulatory Orders Medication Instructions Recorded Confirmed ALPRAZolam [Alprazolam] 0.5 mg PO TID PRN MDD 1.5mg 12/28/16 02/03/18 Apixaban [Eliquis] 1 tab PO BID 12/28/16 02/03/18 Calcium Carbonate/Vitamin D3 1 tab PO DAILY 12/28/16 02/03/18 [Calcium 600-Vit D3 400 Tablet] Cholecalciferol (Vitamin D3) 1 tab PO DAILY 12/28/16 02/03/18 [Vitamin D3] Cranberry Fruit [Cranberry] 1 tab PO DAILY 12/28/16 02/03/18 Estradiol 1 tab PO DAILY 12/28/16 02/03/18 Fenofibric Acid (Choline) 1 tab PO DAILY 12/28/16 02/03/18 [Fenofibric Acid] Levothyroxine Sodium 0.5 tab PO DAILY 12/28/16 02/03/18 Metoprolol Tartrate [Lopressor] 25 mg PO BID 12/28/16 02/03/18 [place]-3S/Dha/Epa/Fish Oil/D3 1 each PO DAILY 12/28/16 02/03/18 [[place]-3 + D Softgel] Triamcinolone 0.5% Cream [Kenalog 0.025 gm TOP DAILY 12/28/16 02/03/18 0.5% Cream] Dexlansoprazole [Dexilant] 60 mg PO 02/03/18 Dronedarone HCl [Multaq] 400 mg PO 02/03/18 Esomeprazole Magnesium [Nexium 20 mg PO 02/03/18 24Hr] Fenofibric Acid (Choline) 135 mg PO 02/03/18 02/03/18 [Trilipix] Hydrocortisone Acetate 25 gm MC 02/03/18 Potassium Chloride 10 meq PO DAILY #10 tablet.er 02/27/18 - Allergies Allergies/Adverse Reactions: Allergies Allergy/AdvReac Type Severity Reaction Status Date / Time patient states "a few rare Allergy Unknown Uncoded 02/03/18 15:15 ones" - Social History Does the pt smoke?: No Smoking Status: Never smoker Does the pt drink ETOH?: No Does the pt have substance abuse?: No - Family History Family history: reports: Non contributory - Immunizations Immunizations are current?: Yes - POLST Patient has POLST: Yes PD ED PE NORMAL - Vitals Vital signs reviewed: Yes - General General: Well developed/nourished, Other (she does seem some anxious about being in the ER, but does not seem uncomfortable with the heart rate fast. Her and son are moderately anxious but supportive and informative. ). No: Alert and oriented X 3 (oriented to person and month, not day. Awake and conversant. Seems c/w some dementia. ) - HEENT HEENT: Atraumatic, Pharynx benign - Neck Neck: Supple, no meningeal sign, No adenopathy - Cardiac Cardiac: RRR, No murmur - Respiratory Respiratory: Clear bilaterally - Abdomen Abdomen: Normal bowel sounds, Soft, Non tender, Non distended - Female Female : Deferred - Rectal Rectal: Deferred - Back Back: No CVA TTP - Derm Derm: Normal color, Warm and dry - Extremities Extremities: No deformity, No tenderness to palpate, Normal ROM s pain, No edema , No calf tenderness / cord - Neuro Neuro: Alert and oriented X 3, No motor deficit, Normal speech Eye Opening: Spontaneous Motor: Obeys Commands Verbal: Confused GCS Score: 14 Results - Vitals Vitals: Oxygen O2 Source Room air - Labs Labs: Laboratory Tests 02/27/18 02/27/18 02/27/18 08:12 08:12 08:12 WBC 5.9 RBC 5.20 Hgb 15.1 Hct 45.5 MCV 87.5 MCH 29.0 MCHC 33.1 RDW 15.0 Plt Count 285 MPV 8.6 Neut # (Auto) 3.9 Lymph # (Auto) 1.5 [place] # (Auto) 0.3 Eos # (Auto) 0.1 Baso # (Auto) 0.1 Absolute Nucleated RBC 0.00 Nucleated RBC % 0.0 Sodium 144 Potassium 3.3 L Chloride 112 H Carbon Dioxide 20 L Anion Gap 12.0 BUN 16 Creatinine 0.6 Estimated GFR (MDRD) 100 Glucose 115 H Calcium 9.2 Magnesium 1.9 Total Bilirubin 0.7 AST 22 ALT 20 Alkaline Phosphatase 19 L B-Natriuretic Peptide Total Protein 7.3 Albumin 4.6 Globulin 2.7 Albumin/Globulin Ratio 1.7 Lipase 48 Vitamin B12 325 02/27/18 08:12 WBC RBC Hgb Hct MCV MCH MCHC RDW Plt Count MPV Neut # (Auto) Lymph # (Auto) [place] # (Auto) Eos # (Auto) Baso # (Auto) Absolute Nucleated RBC Nucleated RBC % Sodium Potassium Chloride Carbon Dioxide Anion Gap BUN Creatinine Estimated GFR (MDRD) Glucose Calcium Magnesium Total Bilirubin AST ALT Alkaline Phosphatase B-Natriuretic Peptide 434 H Total Protein Albumin Globulin Albumin/Globulin Ratio Lipase Vitamin B12 PD MEDICAL DECISION MAKING - ED course Complexity details: re-evaluated patient (heart rate slowed with Diltiazem. Subsequently it converted to NSR. She is feeling okay. ), considered differential, d/w patient - Sepsis Event Vital Signs: Oxygen O2 Source Room air Departure - Departure Disposition: 01 Home, Self Care Clinical Impression: Paroxysmal atrial fibrillation, Hypokalemia Condition: Stable Record reviewed to determine appropriate education?: Yes Instructions: ED Afib Follow-Up: Yobany Nash MD [Primary Care Provider] - Prescriptions: Potassium Chloride 10 meq PO DAILY #10 tablet.er Comments: Continue usual medications. Regular fluids. Your heart rhythm is back to normal at this time. Your Potassium is slightly low; continue a supplement daily. Discharge Date/Time: 02/27/18 10:57
[2018-02-27] MEDS ORDERED: diltiaZEM INJ 5 MG/ML VIAL IVP STA ×2 (07:46→08:27)
[2018-02-27 08:16] LABS: BASOPHILS # (AUTO) 0.1 10^3/uL (0.0-0.1); BASOPHILS % (AUTO) 1.5 %; EOSINOPHILS # (AUTO) 0.1 10^3/uL (0.0-0.7); EOSINOPHILS % (AUTO) 1.7 %; HGB - HEMOGLOBIN 15.1 g/dL (12.0-16.0); LYMPHOCYTES # (AUTO) 1.5 10^3/uL (1.5-3.5); LYMPHOCYTES % (AUTO) 25.2 %; MEAN CORPUSCULAR HGB CONC 33.1 g/dL (32.0-36.0); MEAN CORPUSCULAR VOLUME 87.5 fL (81.0-99.0); MEAN PLATELET VOLUME 8.6 fL (7.9-10.8); MONOCYTES # (AUTO) 0.3 10^3/uL (0.0-1.0); MONOCYTES % (AUTO) 5.8 %; NEUTROPHILS # (AUTO) 3.9 10^3/uL (1.5-6.6); NEUTROPHILS % (AUTO) 65.8 %; PLT - PLATELET COUNT 285 10^3/uL (130-450); WHITE BLOOD COUNT 5.9 x10^3/uL (4.8-10.8)
[2018-02-27 08:33] LABS: ALBUMIN 4.6 g/dL (3.2-5.5); ALBUMIN/GLOBULIN RATIO 1.7 (1.0-2.2); BILIRUBIN,TOTAL 0.7 mg/dL (0.2-1.0); CALCIUM 9.2 mg/dL (8.5-10.3); CREATININE 0.6 mg/dL (0.4-1.0); MAGNESIUM 1.9 mg/dL (1.7-2.8); TOTAL PROTEIN 7.3 g/dL (6.7-8.2)
[2018-02-27] MEDS ORDERED: POTASSIUM BICARB 25 MEQ TABLET PO STA (08:48)
[2018-02-27] MEDS ORDERED: POTASSIUM CHLOR 10 MEQ/100 ML 10 MEQ/100 ML BAG IV ONE (08:56)
[2018-02-27] MEDS ORDERED: SODIUM CHLORIDE 0.9% 500 ML IV ONE (09:15)
[2018-02-27 10:50] VITALS: BP 106/64
== END 2018-02-27 10:57 | disposition home or self-care (01) ==
LOC: EDUNIT# → ED 06:19
DX: I48.0 Paroxysmal atrial fibrillation (principal); E87.6 Hypokalemia; I10 Essential (primary) hypertension; E11.9 Type 2 diabetes mellitus without complications; F03.90 Unspecified dementia, unspecified severity, without behavioral disturbance, psychotic disturbance, mood disturbance, and anxiety; Z79.01 Long term (current) use of anticoagulants
CPT/HCPCS: 36415; 80053; 82607; 83690; 83735; 83880; 85025; 93005; 96365; 96375; 96376; 99284; A9270

== ENCOUNTER 2018-06-07 17:40 | Outpatient (CLI) | payer MEDICARE, OTHER | END 2018-06-07 17:41 | disposition critical access hospital (66) | LOC: EMS 17:40 | PROVIDERS: ATTEND Surgery | DX: R00.0 Tachycardia, unspecified (principal); R68.89 Other general symptoms and signs | CPT/HCPCS: A0425; A0427 ==

== ENCOUNTER 2018-06-07 17:55 | Emergency (ER) | payer MEDICARE, OTHER ==
[2018-06-07] MEDS ORDERED: METOPROLOL 5 MG/5 ML VIAL IVP STA (18:06)
--- NOTE | 2018-06-07 18:08 | ED Physician Documentation ---
PD HPI CHEST PAIN - Stated complaint Stated Complaint: RAPID HR - History obtained from History obtained from: Patient, EMS - History of Present Illness Timing - onset: Today (She started to feel chest pounding this afternoon and was found to be in atrial fibrillation with RVR. Patient has some memory and word finding difficulties making the history difficult but this is similar to prior. She does not remember when her last episode of A. fib was but she has been here a few times in the last few months for same.) Review of Systems Unable to obtain: Confused PD PAST MEDICAL HISTORY - Past Medical History Cardiovascular: Hypertension, Atrial fibrillation Respiratory: None Neuro: Dementia, Other Endocrine/Autoimmune: Type 2 diabetes GI: GERD SHOE IRONER: None : None HEENT: None - Past Surgical History Past Surgical History: Yes General: Cholecystectomy /SHOE IRONER: Hysterectomy Cardiovascular: Other - Present Medications Home Medications: Ambulatory Orders Medication Instructions Recorded Confirmed ALPRAZolam [Alprazolam] 0.5 mg PO TID PRN MDD 1.5mg 12/28/16 02/03/18 Apixaban [Eliquis] 1 tab PO BID 12/28/16 02/03/18 Calcium Carbonate/Vitamin D3 1 tab PO DAILY 12/28/16 02/03/18 [Calcium 600-Vit D3 400 Tablet] Cholecalciferol (Vitamin D3) 1 tab PO DAILY 12/28/16 02/03/18 [Vitamin D3] Cranberry Fruit [Cranberry] 1 tab PO DAILY 12/28/16 02/03/18 Estradiol 1 tab PO DAILY 12/28/16 02/03/18 Fenofibric Acid (Choline) 1 tab PO DAILY 12/28/16 02/03/18 [Fenofibric Acid] Levothyroxine Sodium 0.5 tab PO DAILY 12/28/16 02/03/18 Metoprolol Tartrate [Lopressor] 25 mg PO BID 12/28/16 02/03/18 [place]-3S/Dha/Epa/Fish Oil/D3 1 each PO DAILY 12/28/16 02/03/18 [[place]-3 + D Softgel] Triamcinolone 0.5% Cream [Kenalog 0.025 gm TOP DAILY 12/28/16 02/03/18 0.5% Cream] Dexlansoprazole [Dexilant] 60 mg PO 02/03/18 Dronedarone HCl [Multaq] 400 mg PO 02/03/18 Esomeprazole Magnesium [Nexium 20 mg PO 02/03/18 24Hr] Fenofibric Acid (Choline) 135 mg PO 02/03/18 02/03/18 [Trilipix] Hydrocortisone Acetate 25 gm MC 02/03/18 Potassium Chloride 10 meq PO DAILY #10 tablet.er 02/27/18 - Allergies Allergies/Adverse Reactions: Allergies Allergy/AdvReac Type Severity Reaction Status Date / Time patient states "a few rare Allergy Unknown Uncoded 02/03/18 15:15 ones" - Social History Does the pt smoke?: No Smoking Status: Never smoker Does the pt drink ETOH?: No Does the pt have substance abuse?: No - Immunizations Immunizations are current?: Yes - POLST Patient has POLST: Yes PD ED PE NORMAL - Vitals Vital signs reviewed: Yes - General General: Other (She is alert and oriented to person and place but not time and has difficulty with recent events.) - HEENT HEENT: PERRL, EOMI - Neck Neck: Supple, no meningeal sign, No bony TTP - Cardiac Cardiac: Other (Rapid and irregular without murmur) - Respiratory Respiratory: No respiratory distress, Clear bilaterally - Abdomen Abdomen: Normal bowel sounds, Soft, Non tender - Extremities Extremities: No edema, No calf tenderness / cord - Neuro Neuro: overnight cashier 2-12 intact, Normal speech Eye Opening: Spontaneous Motor: Obeys Commands Verbal: Confused GCS Score: 14 - Psych Psych: Normal mood, Normal affect Results - Vitals Vitals: Vital Signs - 24 hr 06/07/18 06/07/18 06/07/18 17:57 18:24 18:26 Temperature 36.7 C Heart Rate 110 H 116 H 114 H Respiratory 16 16 19 Rate Blood Pressure 132/78 H 132/88 H O2 Saturation 97 96 96 06/07/18 06/07/18 06/07/18 18:58 19:00 19:04 Temperature Heart Rate 119 H 99 104 H Respiratory 25 H 17 Rate Blood Pressure 105/57 L 124/72 O2 Saturation 97 96 96 06/07/18 06/07/18 06/07/18 19:11 19:38 20:43 Temperature Heart Rate 87 95 54 L Respiratory 19 18 18 Rate Blood Pressure 113/73 109/66 121/71 O2 Saturation 95 100 94 06/07/18 06/07/18 20:54 21:24 Temperature Heart Rate 55 L 56 L Respiratory 21 18 Rate Blood Pressure 122/70 O2 Saturation 96 Oxygen O2 Source Room air - EKG (time done) 1808 Rate: Rate (enter#) (145) Rhythm: Atrial fibrillation QRS: LVH Ischemia: Non specific changes Computer interpretation: Agree with computer 2101 Rate: Rate (enter#) (53) Rhythm: NSR [place]: Normal Intervals: Normal PA QRS: LVH Ischemia: Non specific changes Computer interpretation: Agree with computer - Labs Labs: Laboratory Tests 06/07/18 06/07/18 06/07/18 18:19 18:19 18:19 WBC 5.1 RBC 5.03 Hgb 14.5 Hct 44.0 MCV 87.5 MCH 28.9 MCHC 33.0 RDW 15.1 H Plt Count 305 MPV 8.9 Neut # (Auto) 2.7 Lymph # (Auto) 1.9 [place] # (Auto) 0.3 Eos # (Auto) 0.1 Baso # (Auto) 0.1 Absolute Nucleated RBC 0.00 Nucleated RBC % 0.0 Manual Slide Review Indicated Platelet Estimate NORMAL (130-450,000) Platelet Morphology 1+ GIANT PLATELETS RBC Morph Micro Appear NORMAL APPEARANCE Sodium 142 Potassium 3.2 L Chloride 112 H Carbon Dioxide 21 Anion Gap 9.0 BUN 20 Creatinine 0.7 Estimated GFR (MDRD) 84 L Glucose 114 H Calcium 9.4 Total Bilirubin 0.5 AST 24 ALT 18 Alkaline Phosphatase 24 L Troponin I < 0.04 Total Protein 7.2 Albumin 4.5 Globulin 2.7 Albumin/Globulin Ratio 1.7 Lipase 71 H Procedures - Procedural sedation Sedation prep: Informed consent, Time out completed, Last meal (3p), PE perfo rmed, AHA 2 - mild disease, IV O2 monitor, ET CO2 monitor, RT present Sedation medications: propofol (40mg IVP x1) Patient status during sedation: Responds to tactile, Vitals remained stable, Maintained airway, Recovered uneventfully Sedation recovery: Recovered uneventfully - Cardioversion 1 Time of attempt: 20:40 Indication: Tachyarrhythmia Risks, benefits, alternatives explained to: Pt, POA () CS via: AP approach Sync: Biphasic, 100j, 150j, 200j Post cardioversion rhythm: NSR, Other (3 shocks were necessary to get her into sinus rhythm with increasing amps) Performed by: ED MD [facility] MEDICAL DECISION MAKING - ED course ED course: 67-year-old woman with paroxysmal atrial fibrillation presents with exacerbation of same. Medications were ineffective and procainamide was not used because of interaction with her antiarrhythmic. After informed consent she was sedated and successfully cardioverted electrically. Her asked that I forward the records from josé miguel's visit to her disc jockey which I sent along with the following letter: Matthieu Davey MD [facility] Emergency Medicine [address] [address] June 07, 2018 Brendan Ortez MD PhD Cardiology [address], [address] [place] [address] Ortez, I had the pleasure taking care of your patient, Darshana valdez. As you know this is a 67-year-old woman with a somewhat odd form of dementia who also has paroxysmal atrial fibrillation maintained on Eliquis, metoprolol and Multaq. We have seen her about once a month for the last few months for paroxysmal atrial fibrillation which is symptomatic. On the last 2 visits she was able to convert out of it with medications only, but josé miguel required electrical cardioversion. She has been electrically cardioverted before in [place], [place]. Her asked that I send her records from [facility] to your attention. They plan to see you sometime in June. Sincerely, Matthieu Davey MD Departure - Departure Disposition: 01 Home, Self Care Clinical Impression: Paroxysmal atrial fibrillation Condition: Good Record reviewed to determine appropriate education?: Yes Instructions: Atrial Fibrillation Dc Comments: Call your doctor to arrange a follow-up appointment, make the next available appointment. In the interim, return anytime if worse or if new symptoms develop. Discharge Date/Time: 06/07/18 21:30
[2018-06-07 18:28] LABS: BASOPHILS # (AUTO) 0.1 10^3/uL (0.0-0.1); BASOPHILS % (AUTO) 1.2 %; EOSINOPHILS # (AUTO) 0.1 10^3/uL (0.0-0.7); EOSINOPHILS % (AUTO) 2.2 %; HGB - HEMOGLOBIN 14.5 g/dL (12.0-16.0); LYMPHOCYTES # (AUTO) 1.9 10^3/uL (1.5-3.5); LYMPHOCYTES % (AUTO) 37.9 %; MEAN CORPUSCULAR HEMOGLOBIN 28.9 pg (27.0-31.0); MEAN CORPUSCULAR VOLUME 87.5 fL (81.0-99.0); MEAN PLATELET VOLUME 8.9 fL (7.9-10.8); MONOCYTES # (AUTO) 0.3 10^3/uL (0.0-1.0); MONOCYTES % (AUTO) 6.2 %; NEUTROPHILS # (AUTO) 2.7 10^3/uL (1.5-6.6); NEUTROPHILS % (AUTO) 52.5 %; PLT - PLATELET COUNT 305 10^3/uL (130-450); RED BLOOD COUNT 5.03 10^6/uL (4.20-5.40); RED CELL DISTRIBUTION WIDTH 15.1 % (12.0-15.0); WHITE BLOOD COUNT 5.1 x10^3/uL (4.8-10.8)
[2018-06-07] MEDS ORDERED: diltiaZEM INJ 5 MG/ML VIAL IVP STA ×3 (18:34→19:43)
[2018-06-07 18:36] LABS: ALBUMIN 4.5 g/dL (3.2-5.5); ALBUMIN/GLOBULIN RATIO 1.7 (1.0-2.2); BILIRUBIN,TOTAL 0.5 mg/dL (0.2-1.0); CALCIUM 9.4 mg/dL (8.5-10.3); CREATININE 0.7 mg/dL (0.4-1.0); TOTAL PROTEIN 7.2 g/dL (6.7-8.2)
[2018-06-07 19:26] LABS: RBC MORPHOLOGY (MULTIPLE) NORMAL APPEARANCE (NORMAL)
[2018-06-07 19:27] LABS: PLATELET ESTIMATE, MANUAL NORMAL (130-450,000) (NORMAL); PLATELET MORPHOLOGY 1+ GIANT PLATELETS (NORMAL)
[2018-06-07] MEDS ORDERED: PROPOFOL 200 MG/20 ML VIAL IVP STA (20:08)
[2018-06-07 21:25] VITALS: BP 122/70
== END 2018-06-07 21:30 | disposition home or self-care (01) ==
LOC: EDUNIT# → ED 17:55
DX: I48.0 Paroxysmal atrial fibrillation (principal); I11.9 Hypertensive heart disease without heart failure; I51.7 Cardiomegaly; E11.9 Type 2 diabetes mellitus without complications; Z79.01 Long term (current) use of anticoagulants
CPT/HCPCS: 36415; 80053; 83690; 84484; 85025; 92960; 93005; 94770; 99284

== ENCOUNTER 2018-08-06 10:52 | Outpatient (CLI) | payer MEDICARE, OTHER ==
--- NOTE | 2018-08-06 12:33 | Mammography Report ---
Reason: SCREENING MAMMO Procedure Date: 08/06/2018 Accession Number: [id number] / [id number] Procedure: MGN - Screening Mammo Dig Bilat CPT Code: FULL RESULT: EXAM: Screening Mammo Dig Bilat DATE: 08/06/2018 11:18 AM CLINICAL HISTORY: Routine screening TECHNIQUE: Bilateral CC and MLO views were obtained. COMPARISON: 12/05/2016, 11/14/2016, 11/05/2015, 10/20/2014, 06/21/2013 FINDINGS: There are scattered fibroglandular densities. Areas of faint nodularity and scattered benign-appearing calcifications are stable. No new suspicious masses, clustered microcalcifications, or regions of architectural distortion are identified. IMPRESSION: Benign findings RECOMMENDATION: Routine annual screening unless otherwise clinically indicated. BIRADS CATEGORY 2: Benign findings STANDARD QUALIFYING STATEMENTS: 1. This examination was reviewed with the aid of Computer-Aided Detection (CAD). 2. A negative or benign imaging report should not delay biopsy if clinically suspicious findings are present. Consider surgical consultation if warrented. More than 5% of cancers are not identified by imaging. 3. Dense breasts may obscure an underlying neoplasm.
== END 2018-08-06 10:53 | disposition home or self-care (01) ==
LOC: DI.N 10:52
PROVIDERS: ATTEND Family Medicine
DX: Z12.31 Encounter for screening mammogram for malignant neoplasm of breast (principal)
CPT/HCPCS: 77067

== ENCOUNTER 2021-06-26 07:07 | Outpatient (CLI) | payer MEDICARE, OTHER | END 2021-06-26 07:08 | disposition critical access hospital (66) | LOC: EMS 07:07 | DX: R46.89 Other symptoms and signs involving appearance and behavior (principal) | CPT/HCPCS: A0425; A0429 ==

== ENCOUNTER 2021-06-26 07:28 | Emergency (ER) | payer MEDICARE, OTHER ==
--- NOTE | 2021-06-26 08:11 | ED Physician Documentation ---
PD HPI ALTERED MENTAL STATUS - Stated complaint Stated Complaint: AMS - Chief complaint Chief Complaint: General - History obtained from History obtained from: Patient, Family - History of Present Illness Timing - onset: Today Timing - duration: Hours Timing - details: Gradual onset, Still present Quality / character: Other (not cooperating with getting in to bed.) Associated symptoms: No: Fever, Headache, Stiff neck, Dyspnea, Cough, NVD, Urinary sx, General weakness, Focal weakness, Seizure activity, Syncope Contributing factors: Anticoagulated, Known dementia. No: Diabetic, COPD, New medication, Recent med change, Recent illness, Recent injury, Intoxicated, Substance abuse, Known psych illness Basline status: Ambulatory, Confused Similar symptoms before: Diagnosis (fronto-temporal dementia.) - Additional information Additional information: 71-year-old female who has been diagnosed with frontal temporal dementia more than 4 years ago is cared for by her in her home. The indicates that she has been wandering more than usual and this morning she had gotten out of bed when he finally caught up with her he found that she was on her knees next to the bed and was diaphoretic. He attempted to get her up and she just let her arms go up in the air when he tried to pull her up from under the shoulders. When he called 911 he found her walking around in the room talking like nothing it happened. She has advanced dementia and she is incontinent wearing a diaper and refusing to get in the shower. The indicates that she cooks for her nightly and she eats well. He indicates there is no change in her usual behaviors or feeding or drinking. Indicates there is no change in her urination. He does state that the other day he had to get her into the shower after she had a bowel movement on the floor in the bathroom. He does not have any help at home currently and he feels that he is not able to afford care for her in a longterm. He prefers to care for her at his home. Review of Systems Unable to obtain: Confused, Dementia, Uncooperative, Other (history from the ) Constitutional: reports: Sweats. denies: Fever Eyes: denies: Decreased vision Ears: denies: Ear pain Nose: denies: Congestion Throat: denies: Sore throat Cardiac: denies: Chest pain / pressure Respiratory: denies: Dyspnea, Cough GI: denies: Vomiting, Diarrhea : reports: Incontinent. denies: Dysuria, Frequency Skin: denies: Rash Musculoskeletal: denies: Neck pain, Back pain, Extremity pain Neurologic: reports: Confused. denies: Generalized weakness, Focal weakness, Numbness, Difficulty speaking, Headache, Head injury, LOC PD PAST MEDICAL HISTORY - Past Medical History Past Medical History: Yes Cardiovascular: Hypertension, Atrial fibrillation Respiratory: None Neuro: Alzhiemer's, Dementia, Other Endocrine/Autoimmune: Type 2 diabetes GI: GERD ROD FINISHER: None : None HEENT: None - Past Surgical History Past Surgical History: Yes General: Cholecystectomy /ROD FINISHER: Hysterectomy Cardiovascular: Other - Present Medications Home Medications: Ambulatory Orders Medication Instructions Recorded Confirmed ALPRAZolam [Alprazolam] 0.5 mg PO TID PRN MDD 1.5mg 12/28/16 06/26/21 Apixaban [Eliquis] 1 tab PO BID 12/28/16 06/26/21 Calcium Carbonate/Vitamin D3 1 tab PO DAILY 12/28/16 06/26/21 [Calcium 600-Vit D3 400 Tablet] Cholecalciferol (Vitamin D3) 1 tab PO DAILY 12/28/16 06/26/21 [Vitamin D3] Cranberry Fruit [Cranberry] 1 tab PO DAILY 12/28/16 06/26/21 Levothyroxine Sodium 0.5 tab PO DAILY 12/28/16 06/26/21 Metoprolol Tartrate [Lopressor] 25 mg PO BID 12/28/16 06/26/21 Homewood-3S/Dha/Epa/Fish Oil/D3 1 each PO DAILY 12/28/16 06/26/21 [Homewood-3 + D Softgel] Triamcinolone 0.5% Cream [Kenalog 0.025 gm TOP DAILY 12/28/16 06/26/21 0.5% Cream] estradioL [Estradiol] 1 tab PO DAILY 12/28/16 06/26/21 Dronedarone HCl [Multaq] 400 mg PO DAILY 02/03/18 06/26/21 Esomeprazole Magnesium [Nexium 20 mg PO DAILY 02/03/18 06/26/21 24Hr] Fenofibric Acid (Choline) 135 mg PO DAILY 02/03/18 06/26/21 [Trilipix] Potassium Chloride 10 meq PO DAILY #10 tablet.er 02/27/18 06/26/21 Sulfamethox/Trimeth 800/160 1 each PO BID #10 tablet 06/26/21 [Bactrim Ds] - Allergies Allergies/Adverse Reactions: Allergies Allergy/AdvReac Type Severity Reaction Status Date / Time codeine Allergy Unknown Verified 06/26/21 07:39 patient states "a few rare Allergy Unknown Uncoded 02/03/18 15:15 ones" - Social History Does the pt smoke?: No Smoking Status: Never smoker Does the pt drink ETOH?: No Does the pt have substance abuse?: No - Immunizations Immunizations are current?: Yes - POLST Patient has POLST: Yes PD ED PE NORMAL - Vitals Vital signs reviewed: Yes (hypertensive ) - General General: No acute distress, Well developed/nourished, Other (uncooperative with exam few words ) - HEENT HEENT: Atraumatic, PERRL, EOMI - Neck Neck: Supple, no meningeal sign, No bony TTP - Cardiac Cardiac: RRR, No murmur - Respiratory Respiratory: No respiratory distress, Clear bilaterally - Abdomen Abdomen: Normal bowel sounds, Soft, Non tender, Non distended, No organomegaly - Back Back: No CVA TTP, No spinal TTP - Derm Derm: Normal color, Warm and dry, No rash - Extremities Extremities: No deformity, No edema - Neuro 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: 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, No motor deficit, No sensory deficit, Normal speech Eye Opening: Spontaneous Motor: Localizes to Pain Verbal: Confused GCS Score: 13 - Psych Psych: Normal mood, Normal affect Results - Vitals Vitals: Vital Signs - 24 hr 06/26/21 07:34 Temperature 36.4 C L Heart Rate 58 L Respiratory 16 Rate Blood Pressure 133/114 H O2 Saturation 91 L Oxygen O2 Source Room air - Labs Labs: Laboratory Tests 06/26/21 06/26/21 06/26/21 08:34 08:34 08:45 WBC 8.1 RBC 4.89 Hgb 14.7 Hct 45.1 MCV 92.2 MCH 30.1 MCHC 32.6 RDW 14.6 Plt Count 243 MPV 10.0 Neut # (Auto) 5.6 Lymph # (Auto) 1.6 Carbon # (Auto) 0.5 Eos # (Auto) 0.3 Baso # (Auto) 0.1 Absolute Nucleated RBC 0.00 Nucleated RBC % 0.0 Sodium 142 Potassium 3.6 Chloride 109 Carbon Dioxide 23 Anion Gap 10.0 BUN 17 Creatinine 0.7 Estimated GFR (MDRD) 83 L Glucose 137 H Calcium 9.0 Total Bilirubin 0.5 AST 24 ALT 24 Alkaline Phosphatase 21 L Total Protein 7.0 Albumin 4.2 Globulin 2.8 Albumin/Globulin Ratio 1.5 Lipase 43 Urine Color YELLOW Urine Clarity SL. CLOUDY Urine pH 6.5 Ur Specific Delano 1.020 Urine Protein NEGATIVE Urine Glucose (UA) NEGATIVE Urine Ketones NEGATIVE Urine Occult Blood TRACE-INTA Urine Nitrite POSITIVE H Urine Bilirubin NEGATIVE Urine Urobilinogen 0.2 (NORMAL) Ur Leukocyte Esterase SMALL H Urine RBC 6-10 H Urine WBC 11-25 H Ur Squamous Epith Cells MOD Squamous H Urine Bacteria Few Urine Mucus Few Strands Ur Microscopic Review INDICATED Urine Culture Comments NOT INDICATED - Rads (name of study) CT head Radiology: Prelim report reviewed (Impression: Prominent lateral ventricles given the degree of sulcal atrophy. Please consider normal pressure hydrocephalus. No acute hemorrhage is seen.), EMP read indepedently, See rad report Procedures - IVC sono (time) 0800 Bedside IVC sono: Other (unable to complete exam as patient unwilling to cooperate.) PD MEDICAL DECISION MAKING - ED course Complexity details: reviewed old records, reviewed results, re-evaluated patient, considered differential, d/w patient, d/w family ED course: 71-year-old female with history of frontal temporal dementia has advanced dementia and she has now developed some behavioral disturbance at home it is nonaggressive. I have asked social work to help the patient with any of his needs. The patient looks well cared for and we are unable to determine if she has any symptoms of urinary tract infection. The indicates that she does not clean herself up well the the specimen appears contaminated. Departure - Departure Disposition: 01 Home, Self Care Clinical Impression: Advanced dementia UTI (urinary tract infection) Qualifiers: Urinary tract infection type: acute cystitis Hematuria presence: without hematuria Qualified Code(s): N30.00 - Acute cystitis without hematuria Instructions: ED Dementia Caregiver Support, ED UTI Cystitis Female Follow-Up: Yobany Nash MD [Primary Care Provider] - Prescriptions: Sulfamethox/Trimeth 800/160 [Bactrim Ds] 1 each PO BID #10 tablet
[2021-06-26 08:41] LABS: BASOPHILS # (AUTO) 0.1 10^3/uL (0.0-0.1); BASOPHILS % (AUTO) 0.6 %; EOSINOPHILS # (AUTO) 0.3 10^3/uL (0.0-0.7); EOSINOPHILS % (AUTO) 3.2 %; HCT - HEMATOCRIT 45.1 % (37.0-47.0); HGB - HEMOGLOBIN 14.7 g/dL (12.0-16.0); LYMPHOCYTES # (AUTO) 1.6 10^3/uL (1.5-3.5); LYMPHOCYTES % (AUTO) 20.3 %; MEAN CORPUSCULAR HEMOGLOBIN 30.1 pg (27.0-31.0); MEAN CORPUSCULAR HGB CONC 32.6 g/dL (32.0-36.0); MEAN CORPUSCULAR VOLUME 92.2 fL (81.0-99.0); MONOCYTES # (AUTO) 0.5 10^3/uL (0.0-1.0); MONOCYTES % (AUTO) 6.3 %; NEUTROPHILS # (AUTO) 5.6 10^3/uL (1.5-6.6); NEUTROPHILS % (AUTO) 69.2 %; PLT - PLATELET COUNT 243 10^3/uL (130-450); RED BLOOD COUNT 4.89 10^6/uL (4.20-5.40); RED CELL DISTRIBUTION WIDTH 14.6 % (12.0-15.0); WHITE BLOOD COUNT 8.1 x10^3/uL (4.8-10.8)
--- NOTE | 2021-06-26 08:41 | CT Report ---
PROCEDURE: HEAD WO INDICATIONS: altered LOC TECHNIQUE: Noncontrast 4.5 mm thick angled axial sections acquired from the foramen magnum to the vertex. For r adiation dose reduction, the following was used: automated exposure control, adjustment of mA and/or kV according to patient size. COMPARISON: None. FINDINGS: Image quality: Motion artifact is noted. Images were repeated, with some improvement. CSF spaces: Basal cisterns are patent. No extra-axial fluid collections. The lateral ventricles are prominent in size. Brain: No midline shift. No intracranial masses or hemorrhage. Mancuso-white matter interface is norm al. Age-appropriate brain parenchymal volume loss and chronic small vessel ischemic change can be se en. Skull and face: Calvarium and visualized facial bones are intact, without suspicious lesions. Sinuses: Visualized sinuses and mastoids are clear. The right mastoid air cells are relatively poor ly developed. IMPRESSION: Prominent lateral ventricles given the degree of sulcal atrophy. Please consider normal pressure hydr ocephalus. No acute hemorrhage is seen. Reviewed by: Juan David Damon MD on 06/26/2021 7:[address] [facility] Approved by: Juan David Damon MD on 06/26/2021 7:[address] [facility] Station ID: [id number]
[2021-06-26 08:53] LABS: ALBUMIN 4.2 g/dL (3.2-5.5); ALBUMIN/GLOBULIN RATIO 1.5 (1.0-2.2); BILIRUBIN,TOTAL 0.5 mg/dL (0.2-1.0); CREATININE 0.7 mg/dL (0.4-1.0); POTASSIUM 3.6 mmol/L (3.5-5.0)
[2021-06-26 08:53] LABS: BILIRUBIN,URINE NEGATIVE (NEGATIVE); GLUCOSE, URINE (UA) NEGATIVE (NEGATIVE); KETONES,URINE (UA) NEGATIVE (NEGATIVE); LEUKOCYTE ESTERASE, URINE SMALL (NEGATIVE); NITRITE,URINE POSITIVE (NEGATIVE); OCCULT BLOOD,URINE TRACE-INTA (NEGATIVE); PH,URINE 6.5 PH (5.0-7.5); PROTEIN,URINE NEGATIVE (NEGATIVE); UROBILINOGEN,URINE 0.2 (NORMAL) E.U./dL (NORMAL)
[2021-06-26 08:55] LABS: CLARITY,URINE SL. CLOUDY (CLEAR)
[2021-06-26 09:00] LABS: SQUAMOUS EPITHELIAL CELL,UR MOD Squamous (<= Few)
[2021-06-26 09:01] LABS: BACTERIA,URINE Few /HPF (None Seen); MUCUS,URINE Few Strands
[2021-06-26 09:55] VITALS: BP 132/67
== END 2021-06-26 10:10 | disposition home or self-care (01) ==
LOC: EDUNIT# → ED 07:28
DX: N30.00 Acute cystitis without hematuria (principal); G30.9 Alzheimer's disease, unspecified; F02.81 Dementia in other diseases classified elsewhere, unspecified severity, with behavioral disturbance; Z91.83 Wandering in diseases classified elsewhere; I10 Essential (primary) hypertension; I48.91 Unspecified atrial fibrillation; Z79.01 Long term (current) use of anticoagulants; E11.9 Type 2 diabetes mellitus without complications
CPT/HCPCS: 36415; 51701; 80053; 81001; 81003; 83690; 85025; 87086; 99283; 99284

== ENCOUNTER 2021-11-06 00:48 | Outpatient (CLI) | payer MEDICARE, OTHER | END 2021-11-06 00:49 | disposition EMS.NT | LOC: EMS 00:48 | DX: Z03.89 Encounter for observation for other suspected diseases and conditions ruled out (principal) ==

== ENCOUNTER 2021-11-21 02:08 | Outpatient (CLI) | payer MEDICARE, OTHER | END 2021-11-21 02:09 | disposition EMS.NT | LOC: EMS 02:08 | DX: Z03.89 Encounter for observation for other suspected diseases and conditions ruled out (principal) ==

== ENCOUNTER 2022-03-27 09:02 | Outpatient (CLI) | payer MEDICARE, OTHER | END 2022-03-27 09:03 | disposition home or self-care (01) | LOC: EMS 09:02 | DX: I46.9 Cardiac arrest, cause unspecified (principal) ==